=== PATIENT | female | born 1945 | race Caucasian/White ===

== ENCOUNTER 2016-11-17 12:43 | Emergency (ER) | payer MEDICARE, OTHER | END 2016-11-17 15:35 | disposition home or self-care (01) | LOC: SUPCPDRO 12:43 → ED 12:43 | DX: Z04.8 Encounter for examination and observation for other specified reasons (principal); I50.9 Heart failure, unspecified; E66.9 Obesity, unspecified; J45.909 Unspecified asthma, uncomplicated; J44.9 Chronic obstructive pulmonary disease, unspecified; F41.9 Anxiety disorder, unspecified; F32.9 Major depressive disorder, single episode, unspecified; Z79.899 Other long term (current) drug therapy ==